=== PATIENT | female | born 1935 | race Caucasian/White ===

== ENCOUNTER 2019-02-08 18:26 | Inpatient (IN) | payer BC, MEDICAID ==
[~2019-02-08] VITALS: Ht 157.5 cm; Wt 58.1 kg
[~2019-02-08 18:26] MED LIST: CALC-157; FISH OIL 500 MG1 CAP PO; GLUXR500 PO; LOSA1TAB3 PO; METO-442 PO; MULT1TAB PO; VIT E
[2019-02-08 18:36] VITALS: BP_SYST 155
[2019-02-08] MEDS ORDERED: NACL 0.9% 1,000 ML IV ONE (18:37)
[2019-02-08 19:14] LABS: BASOPHILS # (AUTO) 0.1 K/uL (0.0-0.2); BASOPHILS % (AUTO) 0.7 % (0.0-2.0); EOSINOPHILS # (AUTO) 0.4 K/uL (0.0-0.4); EOSINOPHILS % (AUTO) 3.5 % (0.0-4.0); HEMATOCRIT 40.4 % (36-48); HEMOGLOBIN 13.7 g/dL (12.0-16.0); LYMPHOCYTES # (AUTO) 1.8 K/uL (1.0-5.5); MEAN CORPUSCULAR HEMOGLOBIN 29 pg (27-31); MEAN CORPUSCULAR HGB CONC 34 % (32-36); MEAN CORPUSCULAR VOLUME 87 fL (79.0-98.0); MONOCYTES # (AUTO) 0.6 K/uL (0.0-1.0); MONOCYTES % (AUTO) 5.9 % (1.7-9.3); NEUTROPHILS # (AUTO) 7.7 K/uL (1.8-7.7); NEUTROPHILS % (AUTO) 72.9 % (40.0-70.0); PLATELET COUNT (AUTO) 258 K/uL (130-430); RED BLOOD CELL COUNT(AUTO) 4.65 MIL/uL (4.2-6.2); RED CELL DISTRIBUTION WIDTH 14.3 % (9.0-15.0); WHITE BLOOD COUNT (AUTO) 10.6 K/uL (4.8-10.8)
[2019-02-08] MEDS ORDERED: IPRATROPIUM/ALBUTEROL SULFATE 3 ML AMPUL.NEB (DUONEB) INH ONE (19:15)
[2019-02-08] MEDS ORDERED: methylPREDNISolone SOD SUCC/PF 62.5 MG/ML VIAL IVP ONE (19:15)
[2019-02-08 19:20] LABS: ANION GAP 10 (5-15); CALCIUM 9.7 mg/dL (8.4-11.0); CHLORIDE 93 mmol/L (98-107); CREATININE 1.01 mg/dL (0.55-1.30); GLUCOSE 229 mg/dL (70-99); POTASSIUM 3.9 mmol/L (3.5-5.1); SODIUM SERUM 131 mmol/L (136-145); UREA NITROGEN, BLOOD 26 mg/dL (8-21)
[2019-02-08 19:26] LABS: ALANINE AMINOTRANSFERASE 28 U/L (12-78); ALBUMIN 3.9 g/dL (3.4-4.8); ASPARTATE AMINOTRANSFERASE 24 U/L (10-37); TOTAL BILIRUBIN 0.3 mg/dL (0.0-1.0)
[2019-02-08] MEDS ORDERED: LOSA1TAB43 PO (19:45)
[2019-02-08] MEDS ORDERED: FLUT1DIS3 IH (19:45)
[2019-02-08] MEDS ORDERED: PRO40 PO (19:45)
[2019-02-08] MEDS ORDERED: VANCOMYCIN HCL 500 MG in NS 100 ML IV ONE (20:00)
[2019-02-08] MEDS ORDERED: VANCOMYCIN HCL 500 MG/VIAL IV ONE (20:14)
[2019-02-08 20:59] VITALS: BP_SYST 154
[2019-02-08 21:05] VITALS: BP_SYST 140
[2019-02-08 22:42] LABS: BILIRUBIN,URINE NEGATIVE (NEGATIVE); CLARITY/URINE CLEAR (CLEAR); COLOR,URINE YELLOW (YELLOW); GLUCOSE,URINE NEGATIVE (NEGATIVE); KETONES,URINE NEGATIVE (NEGATIVE); LEUKOCYTE ESTERASE ,URINE NEGATIVE (NEGATIVE); NITRITE, URINE NEGATIVE (NEGATIVE); PROTEIN URINE NEGATIVE (NEGATIVE); UROBILINOGEN,URINE 0.2 (0.2-1.0)
[2019-02-08 22:43] LABS: BLOOD, URINE TRACE (NEGATIVE)
[2019-02-08] MEDS ORDERED: ONDANSETRON HCL 4 MG/2 ML VIAL IVP PRN (22:45)
[2019-02-08] MEDS ORDERED: ALBUTEROL SULFATE 0.083% 2.5 MG/3 ML VIAL.NEB INH PRN (22:45)
[2019-02-08] MEDS ORDERED: IPRATROPIUM BROM 0.5 MG/2.5 ML VIAL.NEB (ATROVENT) INH PRN (22:45)
[2019-02-08 22:47] LABS: BACTERIA,URINE FEW /HPF (None Seen); WBC,URINE 0-3 /HPF (0-3)
[2019-02-08] MEDS: ALBUTEROL SULFATE 0.083% 2.5 MG/3 ML VIAL.NEB INH SCH (23:00)
[2019-02-08] MEDS: IPRATROPIUM BROM 0.5 MG/2.5 ML VIAL.NEB (ATROVENT) INH SCH (23:00)
[2019-02-08 23:25] VITALS: BP_SYST 154
[2019-02-09 00:39] VITALS: BP_SYST 146
[2019-02-09] MEDS: ALBUTEROL SULFATE 0.083% 2.5 MG/3 ML VIAL.NEB INH SCH ×6 (03:31→23:14)
[2019-02-09] MEDS: IPRATROPIUM BROM 0.5 MG/2.5 ML VIAL.NEB (ATROVENT) INH SCH ×6 (03:31→23:14)
[2019-02-09] MEDS: HYDROcodone/ACETAMIN 5-325 MG TAB (NORCO/ VICODIN) PO PRN (03:43)
[2019-02-09 05:45] LABS: BASOPHILS % (AUTO) 0.2 % (0.0-2.0); HEMOGLOBIN 12.5 g/dL (12.0-16.0)
[2019-02-09] MEDS: INSULIN REGULAR, HUMAN 100 UNITS/ML, 10 ML VIAL (humuLIN R) SUBCUT PRN ×2 (06:07→21:46)
[2019-02-09 06:54] LABS: ANION GAP 16 (5-15); CALCIUM 9.3 mg/dL (8.4-11.0); CHLORIDE 97 mmol/L (98-107); CREATININE 0.87 mg/dL (0.55-1.30); GLUCOSE 252 mg/dL (70-99); POTASSIUM 3.3 mmol/L (3.5-5.1); SODIUM SERUM 135 mmol/L (136-145); UREA NITROGEN, BLOOD 18 mg/dL (8-21)
[2019-02-09 07:01] LABS: ALANINE AMINOTRANSFERASE 26 U/L (12-78); ALBUMIN 3.4 g/dL (3.4-4.8); ASPARTATE AMINOTRANSFERASE 20 U/L (10-37); TOTAL BILIRUBIN 0.3 mg/dL (0.0-1.0)
[2019-02-09 07:02] LABS: HEMATOCRIT 36.6 % (36-48); LYMPHOCYTES # (AUTO) 1.1 K/uL (1.0-5.5); LYMPHOCYTES % (AUTO) 12.7 % (20.5-51.5); MEAN CORPUSCULAR HEMOGLOBIN 29 pg (27-31); MEAN CORPUSCULAR HGB CONC 34 % (32-36); MEAN CORPUSCULAR VOLUME 86 fL (79.0-98.0); MONOCYTES # (AUTO) 0.2 K/uL (0.0-1.0); MONOCYTES % (AUTO) 1.8 % (1.7-9.3); NEUTROPHILS # (AUTO) 7.6 K/uL (1.8-7.7); NEUTROPHILS % (AUTO) 85.3 % (40.0-70.0); PLATELET COUNT (AUTO) 249 K/uL (130-430); RED BLOOD CELL COUNT(AUTO) 4.25 MIL/uL (4.2-6.2); RED CELL DISTRIBUTION WIDTH 14.3 % (9.0-15.0); WHITE BLOOD COUNT (AUTO) 8.9 K/uL (4.8-10.8)
[2019-02-09] MEDS: BUDESONIDE 0.5 MG/2 ML AMPUL.NEB INH SCH ×2 (07:13→20:09)
[2019-02-09 08:15] VITALS: BP_SYST 137
[2019-02-09] MEDS: PANTOPRAZOLE SODIUM 40 MG TAB PO SCH (08:47)
[2019-02-09] MEDS: METOPROLOL TARTRATE 50 MG TABLET PO SCH (08:47)
[2019-02-09] MEDS: methylPREDNISolone SOD SUCC 40 MG/ML VIAL IVP SCH ×2 (08:47→21:45)
[2019-02-09] MEDS ORDERED: FLUTICASONE 250 mCg/SALMETEROL 50 mCg DISKUS W.DEV INH SCH (09:00)
[2019-02-09] MEDS ORDERED: POTASSIUM CHLORIDE 20 MEQ TAB.PRT.SR PO ONE (09:45)
[2019-02-09 12:06] VITALS: BP_SYST 120
[2019-02-09] MEDS: guaiFENesin/DEXTROMETHORPHAN 10 ML UDC PO PRN ×2 (15:50→21:46)
[2019-02-09 16:08] VITALS: BP_SYST 122
[2019-02-09 20:20] VITALS: BP_SYST 127
[2019-02-09] MEDS: LEVOFLOXACIN 500 MG/D5W 100 ML IV SCH (21:46)
[2019-02-10 00:30] VITALS: BP_SYST 127
[2019-02-10] MEDS: IPRATROPIUM BROM 0.5 MG/2.5 ML VIAL.NEB (ATROVENT) INH SCH ×5 (03:00→19:53)
[2019-02-10] MEDS: ALBUTEROL SULFATE 0.083% 2.5 MG/3 ML VIAL.NEB INH SCH ×5 (03:00→19:53)
[2019-02-10] MEDS: BUDESONIDE 0.5 MG/2 ML AMPUL.NEB INH SCH ×2 (07:03→19:53)
[2019-02-10 08:00] VITALS: BP_SYST 122
[2019-02-10] MEDS: METOPROLOL TARTRATE 50 MG TABLET PO SCH (08:36)
[2019-02-10] MEDS: guaiFENesin/DEXTROMETHORPHAN 10 ML UDC PO PRN ×2 (08:36→22:06)
[2019-02-10] MEDS: methylPREDNISolone SOD SUCC 40 MG/ML VIAL IVP SCH ×2 (08:37→20:45)
[2019-02-10] MEDS: HYDROcodone/ACETAMIN 5-325 MG TAB (NORCO/ VICODIN) PO PRN (08:37)
[2019-02-10] MEDS: PANTOPRAZOLE SODIUM 40 MG TAB PO SCH (08:37)
[2019-02-10 12:00] VITALS: BP_SYST 143
[2019-02-10] MEDS: INSULIN REGULAR, HUMAN 100 UNITS/ML, 10 ML VIAL (humuLIN R) SUBCUT PRN ×2 (12:48→17:31)
[2019-02-10] MEDS ORDERED: ENOXAPARIN SODIUM 40 MG/0.4 ML SYRINGE SUBCUT ONE (14:45)
[2019-02-10 16:00] VITALS: BP_SYST 144
[2019-02-10 20:00] VITALS: BP_SYST 140
[2019-02-10] MEDS: LEVOFLOXACIN 500 MG/D5W 100 ML IV SCH (20:45)
[2019-02-11] VITALS (7 sets, daily range): BP systolic 110–132
[2019-02-11] MEDS: ALBUTEROL SULFATE 0.083% 2.5 MG/3 ML VIAL.NEB INH SCH ×6 (00:38→20:00)
[2019-02-11] MEDS: IPRATROPIUM BROM 0.5 MG/2.5 ML VIAL.NEB (ATROVENT) INH SCH ×6 (00:38→20:00)
[2019-02-11] MEDS: HYDROcodone/ACETAMIN 5-325 MG TAB (NORCO/ VICODIN) PO PRN (02:30)
[2019-02-11] MEDS: INSULIN REGULAR, HUMAN 100 UNITS/ML, 10 ML VIAL (humuLIN R) SUBCUT PRN ×2 (06:26→20:17)
[2019-02-11] MEDS: BUDESONIDE 0.5 MG/2 ML AMPUL.NEB INH SCH ×2 (07:17→20:00)
[2019-02-11 07:19] LABS: ANION GAP 12 (5-15); CALCIUM 9.5 mg/dL (8.4-11.0); CHLORIDE 96 mmol/L (98-107); CREATININE 0.93 mg/dL (0.55-1.30); GLUCOSE 182 mg/dL (70-99); POTASSIUM 4.6 mmol/L (3.5-5.1); SODIUM SERUM 130 mmol/L (136-145); UREA NITROGEN, BLOOD 24 mg/dL (8-21)
[2019-02-11] MEDS: PANTOPRAZOLE SODIUM 40 MG TAB PO SCH (08:14)
[2019-02-11] MEDS: METOPROLOL TARTRATE 50 MG TABLET PO SCH (08:14)
[2019-02-11] MEDS: methylPREDNISolone SOD SUCC 40 MG/ML VIAL IVP SCH ×2 (08:15→20:18)
[2019-02-11] MEDS: ENOXAPARIN SODIUM 40 MG/0.4 ML SYRINGE SUBCUT SCH (08:16)
[2019-02-11] MEDS: LEVOFLOXACIN 500 MG/D5W 100 ML IV SCH (20:18)
[2019-02-11] MEDS: guaiFENesin/DEXTROMETHORPHAN 10 ML UDC PO PRN (22:42)
[2019-02-12] MEDS: ALBUTEROL SULFATE 0.083% 2.5 MG/3 ML VIAL.NEB INH SCH ×6 (00:26→23:00)
[2019-02-12] MEDS: IPRATROPIUM BROM 0.5 MG/2.5 ML VIAL.NEB (ATROVENT) INH SCH ×6 (00:26→23:00)
[2019-02-12 01:07] VITALS: BP_SYST 139
[2019-02-12] MEDS: HYDROcodone/ACETAMIN 5-325 MG TAB (NORCO/ VICODIN) PO PRN (04:05)
[2019-02-12] MEDS: BUDESONIDE 0.5 MG/2 ML AMPUL.NEB INH SCH ×2 (07:35→20:11)
[2019-02-12 08:00] VITALS: BP_SYST 145
[2019-02-12] MEDS: methylPREDNISolone SOD SUCC 40 MG/ML VIAL IVP SCH ×2 (08:33→20:53)
[2019-02-12] MEDS: ENOXAPARIN SODIUM 40 MG/0.4 ML SYRINGE SUBCUT SCH (08:34)
[2019-02-12] MEDS: PANTOPRAZOLE SODIUM 40 MG TAB PO SCH (08:34)
[2019-02-12] MEDS: METOPROLOL TARTRATE 50 MG TABLET PO SCH (08:35)
[2019-02-12] MEDS ORDERED: MAGNESIUM SULFATE 50 ML IV ONE (10:45)
[2019-02-12 11:08] VITALS: BP_SYST 148
[2019-02-12] MEDS: INSULIN REGULAR, HUMAN 100 UNITS/ML, 10 ML VIAL (humuLIN R) SUBCUT PRN ×2 (12:01→17:28)
[2019-02-12] MEDS: BENZONATATE 100 MG CAPSULE (TESSALON) PO SCH ×2 (14:56→20:53)
[2019-02-12 15:18] VITALS: BP_SYST 136
[2019-02-12] MEDS: MONTELUKAST 10 MG TABLET PO SCH (17:28)
[2019-02-12 20:00] VITALS: BP_SYST 142
[2019-02-12] MEDS: LEVOFLOXACIN 500 MG/D5W 100 ML IV SCH (20:53)
[2019-02-13 00:39] VITALS: BP_SYST 117
[2019-02-13] MEDS: ALBUTEROL SULFATE 0.083% 2.5 MG/3 ML VIAL.NEB INH SCH ×6 (03:00→23:15)
[2019-02-13] MEDS: IPRATROPIUM BROM 0.5 MG/2.5 ML VIAL.NEB (ATROVENT) INH SCH ×6 (03:00→23:15)
[2019-02-13 06:08] LABS: BASOPHILS % (AUTO) 0.2 % (0.0-2.0); HEMATOCRIT 37.7 % (36-48); HEMOGLOBIN 12.9 g/dL (12.0-16.0); LYMPHOCYTES # (AUTO) 1.9 K/uL (1.0-5.5); LYMPHOCYTES % (AUTO) 18.4 % (20.5-51.5); MEAN CORPUSCULAR HEMOGLOBIN 29 pg (27-31); MEAN CORPUSCULAR HGB CONC 34 % (32-36); MEAN CORPUSCULAR VOLUME 86 fL (79.0-98.0); MONOCYTES # (AUTO) 0.5 K/uL (0.0-1.0); MONOCYTES % (AUTO) 5.4 % (1.7-9.3); NEUTROPHILS # (AUTO) 7.7 K/uL (1.8-7.7); PLATELET COUNT (AUTO) 333 K/uL (130-430); RED BLOOD CELL COUNT(AUTO) 4.41 MIL/uL (4.2-6.2); RED CELL DISTRIBUTION WIDTH 14.3 % (9.0-15.0); WHITE BLOOD COUNT (AUTO) 10.1 K/uL (4.8-10.8)
[2019-02-13 06:31] LABS: ANION GAP 12 (5-15); CALCIUM 9.6 mg/dL (8.4-11.0); CHLORIDE 96 mmol/L (98-107); CREATININE 0.88 mg/dL (0.55-1.30); GLUCOSE 182 mg/dL (70-99); POTASSIUM 4.4 mmol/L (3.5-5.1); SODIUM SERUM 132 mmol/L (136-145); UREA NITROGEN, BLOOD 21 mg/dL (8-21)
[2019-02-13 06:37] LABS: ALANINE AMINOTRANSFERASE 30 U/L (12-78); ALBUMIN 3.3 g/dL (3.4-4.8); ASPARTATE AMINOTRANSFERASE 17 U/L (10-37); TOTAL BILIRUBIN 0.4 mg/dL (0.0-1.0)
[2019-02-13] MEDS: BUDESONIDE 0.5 MG/2 ML AMPUL.NEB INH SCH ×2 (07:26→19:59)
[2019-02-13 08:00] VITALS: BP_SYST 138
[2019-02-13] MEDS: guaiFENesin/DEXTROMETHORPHAN 10 ML UDC PO PRN ×2 (09:29→20:26)
[2019-02-13] MEDS: methylPREDNISolone SOD SUCC 40 MG/ML VIAL IVP SCH ×2 (09:29→20:27)
[2019-02-13] MEDS: PANTOPRAZOLE SODIUM 40 MG TAB PO SCH (09:29)
[2019-02-13] MEDS: BENZONATATE 100 MG CAPSULE (TESSALON) PO SCH ×3 (09:29→20:26)
[2019-02-13] MEDS: METOPROLOL TARTRATE 50 MG TABLET PO SCH (09:30)
[2019-02-13] MEDS: ENOXAPARIN SODIUM 40 MG/0.4 ML SYRINGE SUBCUT SCH (09:32)
[2019-02-13 11:36] VITALS: BP_SYST 145
[2019-02-13] MEDS: INSULIN REGULAR, HUMAN 100 UNITS/ML, 10 ML VIAL (humuLIN R) SUBCUT PRN ×2 (12:42→17:57)
[2019-02-13 15:42] VITALS: BP_SYST 121
[2019-02-13] MEDS: MONTELUKAST 10 MG TABLET PO SCH (17:50)
[2019-02-13] MEDS: LEVOFLOXACIN 500 MG/D5W 100 ML IV SCH (20:14)
[2019-02-13 20:15] VITALS: BP_SYST 132
[2019-02-14 00:23] VITALS: BP_SYST 125
[2019-02-14] MEDS: ALBUTEROL SULFATE 0.083% 2.5 MG/3 ML VIAL.NEB INH SCH ×6 (04:58→23:00)
[2019-02-14] MEDS: IPRATROPIUM BROM 0.5 MG/2.5 ML VIAL.NEB (ATROVENT) INH SCH ×6 (04:58→23:00)
[2019-02-14] MEDS: HYDROcodone/ACETAMIN 5-325 MG TAB (NORCO/ VICODIN) PO PRN ×2 (05:25→21:32)
[2019-02-14] MEDS: guaiFENesin/DEXTROMETHORPHAN 10 ML UDC PO PRN (06:13)
[2019-02-14 08:00] VITALS: BP_SYST 151
[2019-02-14] MEDS: BENZONATATE 100 MG CAPSULE (TESSALON) PO SCH ×3 (08:10→21:22)
[2019-02-14] MEDS: methylPREDNISolone SOD SUCC 40 MG/ML VIAL IVP SCH ×2 (08:10→21:22)
[2019-02-14] MEDS: PANTOPRAZOLE SODIUM 40 MG TAB PO SCH (08:11)
[2019-02-14] MEDS: METOPROLOL TARTRATE 50 MG TABLET PO SCH (08:11)
[2019-02-14] MEDS: BUDESONIDE 0.5 MG/2 ML AMPUL.NEB INH SCH ×2 (08:12→20:15)
[2019-02-14] MEDS: ENOXAPARIN SODIUM 40 MG/0.4 ML SYRINGE SUBCUT SCH (08:13)
[2019-02-14] MEDS: MONTELUKAST 10 MG TABLET PO SCH (17:39)
[2019-02-14 19:43] VITALS: BP_SYST 143
[2019-02-14] MEDS: LEVOFLOXACIN 500 MG/D5W 100 ML IV SCH (21:22)
[2019-02-15 00:15] VITALS: BP_SYST 113
[2019-02-15] MEDS: INSULIN REGULAR, HUMAN 100 UNITS/ML, 10 ML VIAL (humuLIN R) SUBCUT PRN ×3 (06:14→20:14)
[2019-02-15] MEDS: BUDESONIDE 0.5 MG/2 ML AMPUL.NEB INH SCH ×2 (07:29→20:05)
[2019-02-15] MEDS: ALBUTEROL SULFATE 0.083% 2.5 MG/3 ML VIAL.NEB INH SCH ×5 (07:29→23:00)
[2019-02-15] MEDS: IPRATROPIUM BROM 0.5 MG/2.5 ML VIAL.NEB (ATROVENT) INH SCH ×5 (07:29→23:00)
[2019-02-15 08:00] VITALS: BP_SYST 134
[2019-02-15] MEDS: METOPROLOL TARTRATE 50 MG TABLET PO SCH (08:43)
[2019-02-15] MEDS: methylPREDNISolone SOD SUCC 40 MG/ML VIAL IVP SCH (08:44)
[2019-02-15] MEDS: ENOXAPARIN SODIUM 40 MG/0.4 ML SYRINGE SUBCUT SCH (08:45)
[2019-02-15] MEDS: PANTOPRAZOLE SODIUM 40 MG TAB PO SCH (08:49)
[2019-02-15] MEDS: BENZONATATE 100 MG CAPSULE (TESSALON) PO SCH ×3 (08:49→20:11)
[2019-02-15] MEDS ORDERED: PANTOPRAZOLE SODIUM 40 MG TAB ONE (09:00)
[2019-02-15 11:32] VITALS: BP_SYST 153
[2019-02-15 16:10] VITALS: BP_SYST 130
[2019-02-15] MEDS: MONTELUKAST 10 MG TABLET PO SCH (17:09)
[2019-02-15] MEDS: PREDNISONE 20 MG TABLET PO SCH (17:09)
[2019-02-15 20:00] VITALS: BP_SYST 130
[2019-02-16 00:10] VITALS: BP_SYST 123
[2019-02-16] MEDS: IPRATROPIUM BROM 0.5 MG/2.5 ML VIAL.NEB (ATROVENT) INH SCH ×3 (03:00→11:15)
[2019-02-16] MEDS: ALBUTEROL SULFATE 0.083% 2.5 MG/3 ML VIAL.NEB INH SCH ×3 (03:00→11:15)
[2019-02-16] MEDS: INSULIN REGULAR, HUMAN 100 UNITS/ML, 10 ML VIAL (humuLIN R) SUBCUT PRN (06:03)
[2019-02-16] MEDS: guaiFENesin/DEXTROMETHORPHAN 10 ML UDC PO PRN (06:16)
[2019-02-16 07:56] VITALS: BP_SYST 139
[2019-02-16] MEDS: BUDESONIDE 0.5 MG/2 ML AMPUL.NEB INH SCH (08:05)
[2019-02-16] MEDS: PANTOPRAZOLE SODIUM 40 MG TAB PO SCH (09:07)
[2019-02-16] MEDS: PREDNISONE 20 MG TABLET PO SCH (09:07)
[2019-02-16] MEDS: BENZONATATE 100 MG CAPSULE (TESSALON) PO SCH (09:08)
[2019-02-16] MEDS: METOPROLOL TARTRATE 50 MG TABLET PO SCH (09:08)
[2019-02-16] MEDS: ENOXAPARIN SODIUM 40 MG/0.4 ML SYRINGE SUBCUT SCH (09:11)
[2019-02-16] MEDS ORDERED: MONT10TA25 PO (11:28)
[2019-02-16] MEDS ORDERED: PRED20TA PO (11:28)
[2019-02-16 12:12] VITALS: BP_SYST 131
[2019-02-16 13:17] VITALS: BP_SYST 127
== END 2019-02-16 15:00 | disposition home or self-care (01) | DRG 202 ==
LOC: SED 18:26 → STU 20:15 → SMU 02-10 16:48
PROVIDERS: ADMIT Internal Medicine; ATTEND Internal Medicine
DX: J20.9 Acute bronchitis, unspecified (principal); J44.0 Chronic obstructive pulmonary disease with (acute) lower respiratory infection; E87.1 Hypo-osmolality and hyponatremia; J45.901 Unspecified asthma with (acute) exacerbation; J44.1 Chronic obstructive pulmonary disease with (acute) exacerbation; E11.65 Type 2 diabetes mellitus with hyperglycemia; E78.5 Hyperlipidemia, unspecified; I10 Essential (primary) hypertension; G47.9 Sleep disorder, unspecified; J98.4 Other disorders of lung; K21.9 Gastro-esophageal reflux disease without esophagitis; Z83.3 Family history of diabetes mellitus; Z90.710 Acquired absence of both cervix and uterus; Z90.49 Acquired absence of other specified parts of digestive tract
CPT/HCPCS: 36415; 36600; 71045; 80048; 80053; 81000-TC; 81003; 82803-TC; 82962; 83605; 84484; 85025; 87040-TC; 93005; 93306; 94640; 94760; 96361; 96365; 96367; 96375; 97116-GP; 97530-GP; 99285; G0378; J1030; J1650; J1815; J1956; J2930; J3370; J3475; J7050; J7512; J7613; J7620; J7626

== ENCOUNTER 2022-03-12 18:29 | Inpatient (IN) | payer BC, MEDICAID ==
[~2022-03-12] VITALS: Ht 152.4 cm; Wt 61.0 kg
[~2022-03-12 18:29] MED LIST changes: -CALC-157; -FISH OIL 500 MG1 CAP PO; +FLUT1DIS3 IH; -LOSA1TAB3 PO; +LOSA1TAB43 PO; +MONT-40 PO; -MULT1TAB PO; +PRED20TA PO; +PRO40 PO; -VIT E
[2022-03-12 18:30] VITALS: BP_SYST 136
[2022-03-12 19:07] LABS: BASOPHILS # (AUTO) 0.1 K/uL (0.0-0.2); BASOPHILS % (AUTO) 0.7 % (0.0-2.0); EOSINOPHILS # (AUTO) 0.2 K/uL (0.0-0.4); EOSINOPHILS % (AUTO) 3.1 % (0.0-4.0); HEMATOCRIT 37.8 % (36-48); HEMOGLOBIN 13.1 g/dL (12.0-16.0); LYMPHOCYTES # (AUTO) 2.6 K/uL (1.0-5.5); LYMPHOCYTES % (AUTO) 36.2 % (20.5-51.5); MEAN CORPUSCULAR HEMOGLOBIN 29 pg (27-31); MEAN CORPUSCULAR HGB CONC 35 % (32-36); MEAN CORPUSCULAR VOLUME 83 fL (79.0-98.0); MONOCYTES # (AUTO) 0.6 K/uL (0.0-1.0); MONOCYTES % (AUTO) 8.3 % (1.7-9.3); NEUTROPHILS # (AUTO) 3.7 K/uL (1.8-7.7); NEUTROPHILS % (AUTO) 51.7 % (40.0-70.0); PLATELET COUNT (AUTO) 274 K/uL (130-430); RED BLOOD CELL COUNT(AUTO) 4.55 MIL/uL (4.2-6.2); RED CELL DISTRIBUTION WIDTH 13.9 % (9.0-15.0); WHITE BLOOD COUNT (AUTO) 7.1 K/uL (4.8-10.8)
[2022-03-12 19:16] LABS: ANION GAP 10 (5-15); CALCIUM 8.8 mg/dL (8.4-11.0); CHLORIDE 92 mmol/L (98-107); CREATININE 0.72 mg/dL (0.55-1.30); GLUCOSE 121 mg/dL (70-99); POTASSIUM 3.5 mmol/L (3.5-5.1); SODIUM SERUM 129 mmol/L (136-145); UREA NITROGEN, BLOOD 13 mg/dL (8-21)
[2022-03-12 19:25] LABS: ALANINE AMINOTRANSFERASE 13 U/L (12-78); ALBUMIN 3.6 g/dL (3.4-4.8); ASPARTATE AMINOTRANSFERASE 16 U/L (10-37); TOTAL BILIRUBIN 0.7 mg/dL (0.0-1.0)
[2022-03-12] MEDS ORDERED: ASPIRIN 81 MG TAB.CHEW PO ONE (22:00)
[2022-03-12] MEDS ORDERED: ENOXAPARIN SODIUM 60 MG/0.6 ML SYRINGE SUBCUT ONE (22:00)
[2022-03-13 00:10] VITALS: BP_SYST 148
[2022-03-13 03:52] VITALS: BP_SYST 150
[2022-03-13] MEDS ORDERED: MORPHINE 2 MG/ML INJ. SYRINGE IVP PRN (06:45)
[2022-03-13] MEDS ORDERED: ACETAMINOPHEN 325 MG TABLET PO PRN (06:45)
[2022-03-13] MEDS ORDERED: ONDANSETRON HCL 4 MG/2 ML VIAL IVP PRN (06:45)
[2022-03-13] MEDS ORDERED: HYDROcodone/ACETAMIN 5-325 MG TAB (NORCO/ VICODIN) PO PRN (06:45)
[2022-03-13] MEDS ORDERED: DEXTROSE 50% JECT 50 ML DISP.SYRIN IVP PRN (06:45)
[2022-03-13 07:20] LABS: BASOPHILS # (AUTO) 0.1 K/uL (0.0-0.2); EOSINOPHILS # (AUTO) 0.2 K/uL (0.0-0.4); EOSINOPHILS % (AUTO) 3.2 % (0.0-4.0); HEMATOCRIT 37.1 % (36-48); HEMOGLOBIN 13.2 g/dL (12.0-16.0); LYMPHOCYTES # (AUTO) 2.4 K/uL (1.0-5.5); LYMPHOCYTES % (AUTO) 37.3 % (20.5-51.5); MEAN CORPUSCULAR HEMOGLOBIN 29 pg (27-31); MEAN CORPUSCULAR HGB CONC 36 % (32-36); MEAN CORPUSCULAR VOLUME 82 fL (79.0-98.0); MONOCYTES # (AUTO) 0.5 K/uL (0.0-1.0); MONOCYTES % (AUTO) 7.4 % (1.7-9.3); NEUTROPHILS # (AUTO) 3.3 K/uL (1.8-7.7); NEUTROPHILS % (AUTO) 51.1 % (40.0-70.0); PLATELET COUNT (AUTO) 266 K/uL (130-430); RED BLOOD CELL COUNT(AUTO) 4.53 MIL/uL (4.2-6.2); RED CELL DISTRIBUTION WIDTH 13.7 % (9.0-15.0); WHITE BLOOD COUNT (AUTO) 6.5 K/uL (4.8-10.8)
[2022-03-13 07:35] LABS: ANION GAP 9 (5-15); CALCIUM 8.9 mg/dL (8.4-11.0); CHLORIDE 95 mmol/L (98-107); GLUCOSE 117 mg/dL (70-99); POTASSIUM 3.5 mmol/L (3.5-5.1); SODIUM SERUM 131 mmol/L (136-145); UREA NITROGEN, BLOOD 12 mg/dL (8-21)
[2022-03-13 07:43] LABS: PHOSPHORUS 4.2 mg/dL (2.7-4.5)
[2022-03-13 07:55] VITALS: BP_SYST 130
[2022-03-13] MEDS ORDERED: IPRATROPIUM/ALBUTEROL SULFATE 3 ML AMPUL.NEB (DUONEB) INH PRN (08:45)
[2022-03-13 08:56] LABS: CHOLESTEROL 206 mg/dL (<200); HDL CHOLESTEROL 74 mg/dL (>55); LDL CHOLESTEROL 112 mg/dL (<100); TRIGLYCERIDES 76 mg/dL (30-150)
[2022-03-13] MEDS ORDERED: *LOVENOX 1MG/KG Q12H/PHARMACY XX ONE (09:00)
[2022-03-13] MEDS: ASPIRIN 81 MG TAB.CHEW PO SCH (09:13)
[2022-03-13] MEDS: APIXABAN 2.5 MG TABLET PO SCH ×2 (09:14→20:29)
[2022-03-13] MEDS: ATORVASTATIN 20 MG TABLET PO SCH (09:14)
[2022-03-13] MEDS: PANTOPRAZOLE SODIUM 40 MG TAB PO SCH (09:14)
[2022-03-13] MEDS: METOPROLOL SUCCINATE 50 MG TAB.SR.24H (TOPROL XL) PO SCH (09:21)
[2022-03-13] MEDS ORDERED: LOSARTAN POTASSIUM 50 MG TABLET (COZAAR) PO ONE (09:30)
[2022-03-13] MEDS ORDERED: HYDROCHLOROTHIAZIDE 12.5 MG CAPSULE (HCTZ) PO ONE (09:30)
[2022-03-13 12:00] VITALS: BP_SYST 128
[2022-03-13 16:00] VITALS: BP_SYST 124
[2022-03-13 20:00] VITALS: BP_SYST 112
[2022-03-13] MEDS: INSULIN LISPRO SLIDING SCALE 100 UNITS/ML VIAL (humaLOG) SUBCUT PRN (20:42)
[2022-03-13] MEDS ORDERED: ENOXAPARIN SODIUM 80 MG/0.8 ML SYRINGE SUBCUT SCH (22:00)
[2022-03-14] VITALS (7 sets, daily range): BP systolic 101–141
[2022-03-14 07:18] LABS: BASOPHILS % (AUTO) 0.7 % (0.0-2.0); EOSINOPHILS # (AUTO) 0.3 K/uL (0.0-0.4); EOSINOPHILS % (AUTO) 4.4 % (0.0-4.0); HEMATOCRIT 37.1 % (36-48); LYMPHOCYTES # (AUTO) 2.3 K/uL (1.0-5.5); LYMPHOCYTES % (AUTO) 35.5 % (20.5-51.5); MEAN CORPUSCULAR HEMOGLOBIN 29 pg (27-31); MEAN CORPUSCULAR HGB CONC 35 % (32-36); MEAN CORPUSCULAR VOLUME 83 fL (79.0-98.0); MONOCYTES # (AUTO) 0.5 K/uL (0.0-1.0); MONOCYTES % (AUTO) 7.8 % (1.7-9.3); NEUTROPHILS # (AUTO) 3.4 K/uL (1.8-7.7); NEUTROPHILS % (AUTO) 51.6 % (40.0-70.0); PLATELET COUNT (AUTO) 268 K/uL (130-430); RED BLOOD CELL COUNT(AUTO) 4.46 MIL/uL (4.2-6.2); RED CELL DISTRIBUTION WIDTH 14.2 % (9.0-15.0); WHITE BLOOD COUNT (AUTO) 6.5 K/uL (4.8-10.8)
[2022-03-14 08:17] LABS: ANION GAP 6 (5-15); CALCIUM 8.2 mg/dL (8.4-11.0); CHLORIDE 92 mmol/L (98-107); CREATININE 0.87 mg/dL (0.55-1.30); GLUCOSE 130 mg/dL (70-99); SODIUM SERUM 127 mmol/L (136-145); UREA NITROGEN, BLOOD 10 mg/dL (8-21)
[2022-03-14 08:33] LABS: ALANINE AMINOTRANSFERASE 16 U/L (12-78); ALBUMIN 3.4 g/dL (3.4-4.8); ASPARTATE AMINOTRANSFERASE 21 U/L (10-37); PHOSPHORUS 4.4 mg/dL (2.7-4.5); THYROID STIMULATING HORMONE 2.83 uIu/mL (0.36-3.74); TOTAL BILIRUBIN 0.5 mg/dL (0.0-1.0)
[2022-03-14] MEDS: PANTOPRAZOLE SODIUM 40 MG TAB PO SCH (10:27)
[2022-03-14] MEDS: LOSARTAN POTASSIUM 50 MG TABLET (COZAAR) PO SCH (10:28)
[2022-03-14] MEDS: METOPROLOL SUCCINATE 50 MG TAB.SR.24H (TOPROL XL) PO SCH (10:28)
[2022-03-14] MEDS: ATORVASTATIN 20 MG TABLET PO SCH (10:29)
[2022-03-14] MEDS: ASPIRIN 81 MG TAB.CHEW PO SCH (10:29)
[2022-03-14] MEDS: HYDROCHLOROTHIAZIDE 12.5 MG CAPSULE (HCTZ) PO SCH (10:29)
[2022-03-14] MEDS: APIXABAN 2.5 MG TABLET PO SCH ×2 (10:31→21:10)
[2022-03-14] MEDS ORDERED: APIX2.5T PO (15:53)
[2022-03-14] MEDS: INSULIN LISPRO SLIDING SCALE 100 UNITS/ML VIAL (humaLOG) SUBCUT PRN (21:17)
[2022-03-15 00:10] VITALS: BP_SYST 132
[2022-03-15 04:00] VITALS: BP_SYST 140
[2022-03-15 08:00] VITALS: BP_SYST 151
[2022-03-15 08:03] LABS: ANION GAP 9 (5-15); CALCIUM 8.5 mg/dL (8.4-11.0); CHLORIDE 94 mmol/L (98-107); CREATININE 0.74 mg/dL (0.55-1.30); GLUCOSE 132 mg/dL (70-99); POTASSIUM 3.8 mmol/L (3.5-5.1); SODIUM SERUM 125 mmol/L (136-145); UREA NITROGEN, BLOOD 19 mg/dL (8-21)
[2022-03-15 08:43] LABS: BASOPHILS # (AUTO) 0.1 K/uL (0.0-0.2); BASOPHILS % (AUTO) 0.9 % (0.0-2.0); EOSINOPHILS # (AUTO) 0.2 K/uL (0.0-0.4); EOSINOPHILS % (AUTO) 2.4 % (0.0-4.0); HEMATOCRIT 42.1 % (36-48); HEMOGLOBIN 14.3 g/dL (12.0-16.0); LYMPHOCYTES # (AUTO) 2.1 K/uL (1.0-5.5); MEAN CORPUSCULAR HEMOGLOBIN 29 pg (27-31); MEAN CORPUSCULAR HGB CONC 34 % (32-36); MEAN CORPUSCULAR VOLUME 84 fL (79.0-98.0); MONOCYTES # (AUTO) 0.5 K/uL (0.0-1.0); MONOCYTES % (AUTO) 7.1 % (1.7-9.3); NEUTROPHILS # (AUTO) 4.5 K/uL (1.8-7.7); NEUTROPHILS % (AUTO) 60.6 % (40.0-70.0); PLATELET COUNT (AUTO) 246 K/uL (130-430); RED BLOOD CELL COUNT(AUTO) 5.02 MIL/uL (4.2-6.2); WHITE BLOOD COUNT (AUTO) 7.4 K/uL (4.8-10.8)
[2022-03-15] MEDS: METOPROLOL SUCCINATE 50 MG TAB.SR.24H (TOPROL XL) PO SCH (10:01)
[2022-03-15] MEDS: ATORVASTATIN 20 MG TABLET PO SCH (10:02)
[2022-03-15] MEDS: ASPIRIN 81 MG TAB.CHEW PO SCH (10:03)
[2022-03-15] MEDS: HYDROCHLOROTHIAZIDE 12.5 MG CAPSULE (HCTZ) PO SCH (10:04)
[2022-03-15] MEDS: PANTOPRAZOLE SODIUM 40 MG TAB PO SCH (10:05)
[2022-03-15] MEDS: APIXABAN 2.5 MG TABLET PO SCH (10:07)
[2022-03-15] MEDS: LOSARTAN POTASSIUM 50 MG TABLET (COZAAR) PO SCH (10:08)
[2022-03-15] MEDS: INSULIN LISPRO SLIDING SCALE 100 UNITS/ML VIAL (humaLOG) SUBCUT PRN (11:48)
[2022-03-15 12:00] VITALS: BP_SYST 101
[2022-03-15 16:00] VITALS: BP_SYST 146
[2022-03-15 17:00] VITALS: BP_SYST 148
[2022-03-15] MEDS ORDERED: DOCUSATE SODIUM 100 MG CAPSULE PO SCH (21:00)
== END 2022-03-15 17:45 | disposition home or self-care (01) | DRG 309 ==
LOC: SED 18:29 → STU 21:12
PROVIDERS: ADMIT Student in an Organized Health Care Education/Training Program; ATTEND Student in an Organized Health Care Education/Training Program
DX: I47.1 Supraventricular tachycardia (principal); E87.1 Hypo-osmolality and hyponatremia; I24.8 Other forms of acute ischemic heart disease; I48.0 Paroxysmal atrial fibrillation; E78.00 Pure hypercholesterolemia, unspecified; E78.5 Hyperlipidemia, unspecified; G90.8 Other disorders of autonomic nervous system; I10 Essential (primary) hypertension; Z20.822 Contact with and (suspected) exposure to COVID-19; E11.9 Type 2 diabetes mellitus without complications; J45.909 Unspecified asthma, uncomplicated; Z79.84 Long term (current) use of oral hypoglycemic drugs; Z79.899 Other long term (current) drug therapy; Z90.49 Acquired absence of other specified parts of digestive tract; Z79.01 Long term (current) use of anticoagulants
CPT/HCPCS: 36415; 71045; 80048; 80053; 80061; 82962; 83735; 83880; 84100; 84443; 84484; 85025; 93005; 93306; 96372; 97116-GP; 97530-GP; 99285; G0378; J1650

== ENCOUNTER 2022-08-16 09:01 | Inpatient (IN) | payer BC, MEDICAID ==
[~2022-08-16] VITALS: Ht 162.6 cm; Wt 72.3 kg
[~2022-08-16 09:01] MED LIST changes: +AMIO200T61 PO; +APIX2.5T PO; -FLUT1DIS3 IH; -GLUXR500 PO; -LOSA1TAB43 PO; +LOSA50TA3 PO; +METF-379 PO; +METF-381 PO; -METO-442 PO; -MONT-40 PO; -PRED20TA PO
[2022-08-16 09:12] VITALS: BP_SYST 158
[2022-08-16] MEDS ORDERED: NS 500 ML IV ONE (09:15)
[2022-08-16] MEDS ORDERED: MORPHINE 4 MG INJ. 4 MG/ML VIAL IVP ONE (09:15)
[2022-08-16] MEDS ORDERED: ONDANSETRON HCL 4 MG/2 ML VIAL IVP ONE (09:15)
--- NOTE | 2022-08-16 09:41 | NUR ---
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
[2022-08-16 11:08] LABS: BASOPHILS # (AUTO) 0.1 K/uL (0.0-0.2); BASOPHILS % (AUTO) 0.9 % (0.0-2.0); EOSINOPHILS # (AUTO) 0.2 K/uL (0.0-0.4); EOSINOPHILS % (AUTO) 3.4 % (0.0-4.0); HEMATOCRIT 36.9 % (36-48); HEMOGLOBIN 12.7 g/dL (12.0-16.0); LYMPHOCYTES # (AUTO) 1.2 K/uL (1.0-5.5); LYMPHOCYTES % (AUTO) 19.7 % (20.5-51.5); MEAN CORPUSCULAR HEMOGLOBIN 29 pg (27-31); MEAN CORPUSCULAR HGB CONC 35 % (32-36); MEAN CORPUSCULAR VOLUME 83 fL (79.0-98.0); MONOCYTES # (AUTO) 0.4 K/uL (0.0-1.0); MONOCYTES % (AUTO) 6.4 % (1.7-9.3); NEUTROPHILS # (AUTO) 4.1 K/uL (1.8-7.7); NEUTROPHILS % (AUTO) 69.6 % (40.0-70.0); PLATELET COUNT (AUTO) 262 K/uL (130-430); RED BLOOD CELL COUNT(AUTO) 4.44 MIL/uL (4.2-6.2); RED CELL DISTRIBUTION WIDTH 15.2 % (9.0-15.0); WHITE BLOOD COUNT (AUTO) 5.9 K/uL (4.8-10.8)
[2022-08-16 11:12] LABS: ANION GAP 7 (5-15); CALCIUM 8.9 mg/dL (8.4-11.0); CHLORIDE 99 mmol/L (98-107); CREATININE 0.86 mg/dL (0.55-1.30); GLUCOSE 119 mg/dL (70-99); UREA NITROGEN, BLOOD 19 mg/dL (8-21)
[2022-08-16 11:21] LABS: ALANINE AMINOTRANSFERASE 34 U/L (12-78); ASPARTATE AMINOTRANSFERASE 21 U/L (10-37); TOTAL BILIRUBIN 0.6 mg/dL (0.0-1.0)
--- NOTE | 2022-08-16 11:41 | NUR ---
PATIENT WITH ELEVATED TROP, PAIN IMPROVED NO ACUTE DISTRESS WILL CONTINUE TO MONITOR.
--- NOTE | 2022-08-16 11:42 | NUR ---
DR. VILLARREAL MADE AWARE PT'S TROP 209. NNOS
--- NOTE | 2022-08-16 11:52 | NUR ---
PATIENT REASSESS NO ACUTE CHANGES PAIN 0/10 AWAITING FOR ADMIT TELE BED, DAUGHTER REX NOTIFIED [phone].
[2022-08-16] MEDS ORDERED: cloNIDine HCL 0.1 MG TABLET PO PRN (14:00)
[2022-08-16] MEDS ORDERED: CARVEDILOL 6.25 MG TABLET (COREG) PO ONE (14:00)
[2022-08-16] MEDS ORDERED: PANTOPRAZOLE SODIUM 40 MG TAB PO ONE (14:15)
[2022-08-16] MEDS ORDERED: LOSARTAN POTASSIUM 50 MG TABLET (COZAAR) PO ONE (15:30)
[2022-08-16] MEDS ORDERED: ATORVASTATIN 20 MG TABLET PO ONE (15:30)
[2022-08-16] MEDS ORDERED: APIXABAN 2.5 MG TABLET PO ONE (15:30)
[2022-08-16] MEDS ORDERED: iohexoL 350 mgI/mL, 100 ML INFUS..BTL IV ONE (15:39)
--- NOTE | 2022-08-16 16:52 | NUR ---
Patient resting quietly. No acute distress noted. Vital signs within normal range.
--- NOTE | 2022-08-16 18:15 | NUR ---
ASSIST PATIENT TO BATHROOM, VSS NO CP, NO SOB NO NAUSEA VOMITING.
--- NOTE | 2022-08-16 19:25 | NUR ---
Received report from Melani VANESSA. Pt AAOx4, skin w/d to touch. Asleep w/ easy arousal.
--- NOTE | 2022-08-16 19:51 | NUR ---
INFLUENZA SWAB COLLECTED AND SENT TO LAB.
--- NOTE | 2022-08-16 21:00 | NUR ---
Admit bed requested Patient will be admitted to care of Dr. Mendes Admitted to Tele unit. Diagnosis Chest Pain Inpatient Yes Observation No Orientation concerns or request close to nursing station No Covid Status Neg On vent or bipap No Isolation requirements No Needs a sitter No Requires Dialysis No Med Rec Completed Yes
[2022-08-16] MEDS: CARVEDILOL 3.125 MG TABLET (COREG) PO SCH (21:45)
[2022-08-16] MEDS ORDERED: ALPRAZolam 0.25 MG TABLET PO ONE (21:45)
[2022-08-16] MEDS: APIXABAN 2.5 MG TABLET PO SCH (21:46)
--- NOTE | 2022-08-16 22:28 | NUR ---
Patient will be admitted to care of [facility]. Admitted to Tele unit. Will go to room 133A. Belongings list completed. Complete and up to date summary report printed. SBAR report to be given at bedside with opportunity for questions.
--- NOTE | 2022-08-16 23:00 | NUR ---
ADMISSION NOTE Received patient from ER via gurney. Patient admitted with diagnosis of CHEST PAIN. Patient is awake, alert, oriented X 4. Patient oriented to hospital room, call light, toileting, pain management and safety-teach back done. Patient informed that their room number is 133A. Personal belongings checked and Belongings List documented. Call light within reach.
[2022-08-16 23:17] VITALS: BP_SYST 106
[2022-08-17] VITALS (7 sets, daily range): BP systolic 87–120
[2022-08-17] MEDS ORDERED: NS 500 ML IV ONE (01:30)
--- NOTE | 2022-08-17 01:30 | NUR ---
HEART RATE/BP Pt's HR went down to the low 30s, non sustaining. Pt was sleeping and was easily arousable, alert and oriented. BP 87/49, 90/42, 92/38. Informed Dr Martita Cruz, new orders received
[2022-08-17] MEDS: NACL 0.9% 1,000 ML IV SCH ×2 (02:18→20:11)
--- NOTE | 2022-08-17 03:55 | NUR ---
LOW BP Pt's BP still low at 80/32, 88/35, 83/35, alert and oriented. Spoke w/ Dr Cruz, ordered midodrine 5mg TID
[2022-08-17] MEDS ORDERED: MIDODRINE HCL 5 MG TABLET (PROAMATINE) PO ONE (04:00)
--- NOTE | 2022-08-17 07:19 | NUR ---
CLOSING NOTE Pt is lying in bed, eyes closed. No s/s of respiratory distress. Breathing even and unlabored on RA. No c/o chest pain. BP is more stable at 97/43. IV site intact and patent with fluids running at ordered rate. All needs met throughout shift. Fall and safety precautions in place with bed in lowest position, bed alarm on, and call light within reach
--- NOTE | 2022-08-17 07:30 | NUR ---
OPENING NOTE Patient in bed resting,. A/O x 4 Croatian/Farsi speaking. No pain, no distress, no SOB noted at this time. BP was low in shift leader but during initial assessment in am rounds noted to be 112/40. Patient has IV LAC 20g patent and on infusion pump. Patient on bed rest, with bedside commode next to bed. All needs met at this time, safety precautions in place, Bed is locked in lowest position, will continue to monitor.
[2022-08-17] MEDS ORDERED: iohexoL 350 mgI/mL, 100 ML INFUS..BTL IV ONE (08:21)
[2022-08-17] MEDS: ATORVASTATIN 20 MG TABLET PO SCH (08:55)
[2022-08-17] MEDS: APIXABAN 2.5 MG TABLET PO SCH ×2 (08:56→20:09)
[2022-08-17] MEDS: CARVEDILOL 3.125 MG TABLET (COREG) PO SCH (08:57)
[2022-08-17] MEDS ORDERED: LOSARTAN POTASSIUM 50 MG TABLET (COZAAR) PO SCH (09:00)
[2022-08-17] MEDS ORDERED: MIDODRINE HCL 5 MG TABLET (PROAMATINE) PO SCH (09:00)
[2022-08-17 09:45] LABS: BASOPHILS % (AUTO) 0.5 % (0.0-2.0); EOSINOPHILS # (AUTO) 0.3 K/uL (0.0-0.4); EOSINOPHILS % (AUTO) 3.3 % (0.0-4.0); HEMATOCRIT 36.9 % (36-48); HEMOGLOBIN 12.5 g/dL (12.0-16.0); LYMPHOCYTES # (AUTO) 1.6 K/uL (1.0-5.5); LYMPHOCYTES % (AUTO) 19.5 % (20.5-51.5); MEAN CORPUSCULAR HEMOGLOBIN 29 pg (27-31); MEAN CORPUSCULAR HGB CONC 34 % (32-36); MEAN CORPUSCULAR VOLUME 84 fL (79.0-98.0); MONOCYTES # (AUTO) 0.6 K/uL (0.0-1.0); MONOCYTES % (AUTO) 7.2 % (1.7-9.3); NEUTROPHILS # (AUTO) 5.7 K/uL (1.8-7.7); NEUTROPHILS % (AUTO) 69.5 % (40.0-70.0); PLATELET COUNT (AUTO) 268 K/uL (130-430); RED BLOOD CELL COUNT(AUTO) 4.38 MIL/uL (4.2-6.2); RED CELL DISTRIBUTION WIDTH 15.2 % (9.0-15.0); WHITE BLOOD COUNT (AUTO) 8.3 K/uL (4.8-10.8)
[2022-08-17 09:56] LABS: ALANINE AMINOTRANSFERASE 31 U/L (12-78); ALBUMIN 3.5 g/dL (3.4-4.8); ANION GAP 7 (5-15); ASPARTATE AMINOTRANSFERASE 23 U/L (10-37); CALCIUM 7.8 mg/dL (8.4-11.0); CHLORIDE 100 mmol/L (98-107); CREATININE 1.05 mg/dL (0.55-1.30); GLUCOSE 128 mg/dL (70-99); TOTAL BILIRUBIN 0.5 mg/dL (0.0-1.0); UREA NITROGEN, BLOOD 24 mg/dL (8-21)
[2022-08-17] MEDS ORDERED: MIDODRINE HCL 5 MG TABLET (PROAMATINE) PO PRN (10:00)
[2022-08-17] MEDS ORDERED: MELOXICAM 7.5 MG TABLET PO ONE (10:30)
--- NOTE | 2022-08-17 12:00 | NUR ---
Patient in bed resting. No pain, no distress, no SOB noted at this time. All needs met at this time, safety precautions in place, Bed is locked in lowest position, will continue to monitor.
--- NOTE | 2022-08-17 15:25 | NUR ---
Paged MD Mendes for CT scan results. Awaiting a call back.
[2022-08-17] MEDS: LIDOCAINE TOPICAL OINT 5%, 35 GM TP SCH ×2 (15:28→20:16)
--- NOTE | 2022-08-17 16:17 | NUR ---
CT SCAN Follow up Spoke with MD Mendes regarding CT Scan. wants whole body scan tomorrow.
--- NOTE | 2022-08-17 18:51 | NUR ---
CLOSING NOTE Patient in bed resting,. A/O x 4 Macedonian/Farsi speaking. No pain, no distress, no SOB noted at this time. Patient has IV LFA 20g patent and on infusion pump. Patient on bed rest, with bedside commode next to bed. All needs met at this time, safety precautions in place, Bed is locked in lowest position, will endorse to nightshift nurse.
--- NOTE | 2022-08-17 19:30 | NUR ---
OPENING NOTE Pt is awake lying in bed. No s/s of respiratory distress. Breathing even and unlabored on RA. No c/o chest pain. IV site intact and patent with fluids running at ordered rate. Fall and safety precautions in place with bed in lowest position, bed alarm on, and call light within reach
[2022-08-17] MEDS: DOCUSATE SODIUM 100 MG CAPSULE PO SCH (21:36)
[2022-08-18] VITALS: BP_SYST 102
--- NOTE | 2022-08-18 00:15 | NUR ---
ROUNDS Pt lying in bed, eyes closed. No s/s of acute distress. Fall and safety checks in place
[2022-08-18 05:41] VITALS: BP_SYST 138
--- NOTE | 2022-08-18 06:38 | NUR ---
CLOSING NOTE Pt is lying in bed, eyes closed. No s/s of respiratory distress. Breathing even and unlabored on RA. No c/o chest pain. IV site intact and patent with fluids running at ordered rate. All needs met throughout shift. Fall and safety precautions in place with bed in lowest position, bed alarm on, and call light within reach
--- NOTE | 2022-08-18 07:40 | NUR ---
OPENING NOTES RECEIVED BEDSIDE SBAR FROM PM SHIFT NURSE BED AT LOW POSITION CALL LIGHT IN REACH NO DISTRESS RESTING WELL IN BED AT 30 DEGREE, ALL SAFETY CHECKS DONE WILL CONT TO MONITOR PER ORDERS
[2022-08-18 07:52] LABS: BASOPHILS # (AUTO) 0.1 K/uL (0.0-0.2); EOSINOPHILS # (AUTO) 0.5 K/uL (0.0-0.4); EOSINOPHILS % (AUTO) 8.2 % (0.0-4.0); HEMATOCRIT 33.2 % (36-48); HEMOGLOBIN 11.4 g/dL (12.0-16.0); LYMPHOCYTES # (AUTO) 1.6 K/uL (1.0-5.5); MEAN CORPUSCULAR HEMOGLOBIN 29 pg (27-31); MEAN CORPUSCULAR HGB CONC 34 % (32-36); MEAN CORPUSCULAR VOLUME 83 fL (79.0-98.0); MONOCYTES # (AUTO) 0.4 K/uL (0.0-1.0); MONOCYTES % (AUTO) 6.9 % (1.7-9.3); NEUTROPHILS # (AUTO) 3.7 K/uL (1.8-7.7); NEUTROPHILS % (AUTO) 58.9 % (40.0-70.0); PLATELET COUNT (AUTO) 243 K/uL (130-430); RED BLOOD CELL COUNT(AUTO) 3.99 MIL/uL (4.2-6.2); RED CELL DISTRIBUTION WIDTH 15.3 % (9.0-15.0); WHITE BLOOD COUNT (AUTO) 6.3 K/uL (4.8-10.8)
[2022-08-18 08:23] VITALS: BP_SYST 148
[2022-08-18 08:38] LABS: ANION GAP 6 (5-15); CALCIUM 7.9 mg/dL (8.4-11.0); CHLORIDE 105 mmol/L (98-107); CREATININE 0.83 mg/dL (0.55-1.30); GLUCOSE 121 mg/dL (70-99); UREA NITROGEN, BLOOD 19 mg/dL (8-21)
[2022-08-18] MEDS ORDERED: LOSARTAN POTASSIUM 25 MG TABLET PO SCH (09:00)
[2022-08-18] MEDS ORDERED: MELOXICAM 7.5 MG TABLET PO SCH (09:00)
[2022-08-18] MEDS: DOCUSATE SODIUM 100 MG CAPSULE PO SCH (09:15)
[2022-08-18] MEDS: ATORVASTATIN 20 MG TABLET PO SCH (09:16)
[2022-08-18] MEDS: APIXABAN 2.5 MG TABLET PO SCH (09:20)
[2022-08-18] MEDS: LIDOCAINE TOPICAL OINT 5%, 35 GM TP SCH (09:21)
--- NOTE | 2022-08-18 12:10 | NUR ---
ROUNDS PATIENT REMAINS STABLE NO DISTRESS, RESTING WELL IN BED, ALL SAFETY CHECK MADE, BED LOCKED AND AT LOW POSITION CALL LIGHT IN REACH, WILL CONT TO MONITOR PATIENT
[2022-08-18 12:15] VITALS: BP_SYST 152
--- NOTE | 2022-08-18 13:40 | NUR ---
SPOKE WITH FAMILY (DAUGHTER REX) PATIENT IS D/C TO GO HOME. WILL BE HERE WITHIN THE HOUR. VIA PRIVATE AUTO.
[2022-08-18 13:47] VITALS: BP_SYST 148
--- NOTE | 2022-08-18 14:16 | NUR ---
PATIENT WILL BE D/C HOME AFTER FULL BODY SCAN.
--- NOTE | 2022-08-18 16:02 | NUR ---
D/C Patient Patient given medication reconciliation form and D/C instructions. Exit Care provided. Patient verbalized understanding. MD discussed with patient the results and treatment provided. Ambulatory with steady gait for discharge to home. Patient in stable condition, ID band removed. IV catheter removed, intact and dressing applied, no active bleeding. Rx of [] given. Patient educated on pain management. All belongings sent with patient.
== END 2022-08-18 16:00 | disposition home or self-care (01) | DRG 206 ==
LOC: SED 09:01 → STU 13:52 → OBSVTOIN 08-18 11:59
PROVIDERS: ADMIT Specialist; ATTEND Specialist
DX: M94.0 Chondrocostal junction syndrome [Tietze] (principal); I48.91 Unspecified atrial fibrillation; E11.9 Type 2 diabetes mellitus without complications; I10 Essential (primary) hypertension; E78.5 Hyperlipidemia, unspecified; I25.10 Atherosclerotic heart disease of native coronary artery without angina pectoris; I11.0 Hypertensive heart disease with heart failure; I50.9 Heart failure, unspecified; J44.9 Chronic obstructive pulmonary disease, unspecified; Z79.01 Long term (current) use of anticoagulants; Z88.0 Allergy status to penicillin; Z79.899 Other long term (current) drug therapy
CPT/HCPCS: 36415; 71045; 71275; 76376; 78306; 80048; 80053; 82330; 82962; 83735; 83880; 84484; 85025; 85379; 93005; 96361; 96374; 96375; 99291; 99292; A9503; G0378; J2270; J2405; J7030; J7040; Q9967